=== PATIENT | female | born 1980 | race African-American/Black ===

== ENCOUNTER 2023-02-12 18:21 | Emergency (ER) | payer OTHER ==
[~2023-02-12] VITALS: Ht 170.2 cm; Wt 82.0 kg
[2023-02-12] MEDS ORDERED: ACETAMINOPHEN 325MG TABLET PO STA (19:17)
[2023-02-12] MEDS ORDERED: SODIUM CHLORIDE 0.9% 1,000 ML IV ONE (19:30)
[2023-02-12 19:55] LABS: BASOPHILS % 0.3 % (0.0-2.0); EOSINOPHILS % 1.1 % (0.0-5.0); HEMATOCRIT. 39.4 % (36.0-48.0); HEMOGLOBIN. 12.9 g/dL (12.0-16.0); LYMPHOCYTES % 35.5 % (20.0-50.0); MEAN CORPUSCULAR HEMOGLOBIN 27.2 pg (28.0-32.0); MEAN CORPUSCULAR VOLUME 83.1 fL (81.0-99.0); MEAN PLATELET VOLUME 7.2 fl (7.4-10.4); MONOCYTES % 6.2 % (2.0-8.0); NEUTROPHILS % 56.9 % (40.0-76.0); PLATELET 320 x1000/uL (130-400); RED BLOOD CELL COUNT 4.74 mill/uL (4.2-5.4); RED CELL DISTRIBUTION WIDTH 17.7 % (11.6-14.6)
[2023-02-12 20:05] LABS: CHLORIDE 105 mEq/L (98-107)
[2023-02-12 22:37] LABS: CLARITY URINE CLOUDY (CLEAR); COLOR URINE YELLOW (YELLOW); KETONES URINE 1+ (NEGATIVE); LEUKOCYTE ESTERASE URINE 3+ (NEGATIVE); NITRITE URINE NEGATIVE (NEGATIVE); OCCULT BLOOD URINE 1+ (NEGATIVE); PH URINE 7.5 (4.5-8.0); PROTEIN URINE 1+ (NEGATIVE)
[2023-02-12] MEDS ORDERED: ACETAMINOPHEN 325MG TABLET PO NR (22:45)
[2023-02-12 23:00] VITALS: BP 145/65
[2023-02-12] MEDS ORDERED: CEPH500C2 MT (23:49)
[2023-02-13] MEDS ORDERED: PHENAZOPYRIDINE HCL 100MG TABLET PO ONE
[2023-02-13] MEDS ORDERED: MORPHINE SULFATE 4 MG/ML CPJ (NOT FOR IM USE) IV NR
[2023-02-13] MEDS ORDERED: ONDANSETRON HCL 4MG/2ML INJ IV NR (00:30)
== END 2023-02-13 10:17 | disposition home or self-care (01) ==
LOC: ER 18:21
DX: N39.0 Urinary tract infection, site not specified (principal); I10 Essential (primary) hypertension; Z91.018 Allergy to other foods
CPT/HCPCS: 36415; 80053; 81003; 83605; 83690; 85025; 87086; 87186; 96361; 96374; 96375; 99284; J2270; J2405; J7030; Z7610; A4315